=== PATIENT | female | born 1990 | race Asian ===

== ENCOUNTER 2020-07-13 09:18 | Emergency (ER) | payer OTHER ==
[~2020-07-13] VITALS: Ht 154.9 cm; Wt 45.4 kg
--- NOTE | 2020-07-13 09:41 | NUR ---
PT IS A 29F WHO IS 11 WEEKS WITH TWINS, COMPLAINING OF 3 EPISODES OF VOMITING BLOOD SINCE THURSDAY. SHE HAS BEEN VOMITING FROM MORNING SICKNESS IN THE LAST FEW WEEKS. SPOUSE AT BEDSIDE. DENIES URINARY ISSUES. SHE HAD SOME EPIGASTRIC TENDERNESS WELL. CONTINUOUS SP02, AND CYCLING VITALS. CALL LIGHT WITHIN REACH.
[2020-07-13] MEDS ORDERED: PREN1TAB62 PO (09:45)
[2020-07-13] MEDS ORDERED: ONDA4TAB7 PO (09:45)
[2020-07-13 10:04] LABS: MICROSCOPIC INDICATED
[2020-07-13 10:09] LABS: BASOPHILS % (AUTO) 0 % (0-1); EOSINOPHILS % (AUTO) 1 % (1-7); LYMPHOCYTES % (AUTO) 22 % (22-44); MEAN CORPUSCULAR HEMOGLOBIN 30.8 pg (27.0-34.8); MEAN PLATELET VOLUME 7.9 fL (7.4-10.4); MONOCYTES % (AUTO) 7 % (2-9); NEUTROPHILS % (AUTO) 69 % (42-75); PLATELET COUNT 203 x10^3/uL (130-400); RED BLOOD COUNT 4.29 x10^6/uL (3.82-5.3); RED CELL DISTRIBUTION WIDTH 13.5 % (9.6-15.2)
[2020-07-13 10:11] LABS: MD NO
[2020-07-13 10:19] LABS: ALBUMIN 3.4 g/dL (3.4-5.0); ANION GAP 10 mmol/L (5-15); CALCIUM 8.9 mg/dL (8.5-10.1); CHLORIDE 107 mmol/L (98-107)
[2020-07-13 10:22] LABS: ALANINE AMINOTRANSFERASE 24 U/L (12-78); ALKALINE PHOSPHATASE 40 U/L (45-117); BILIRUBIN,TOTAL 0.4 mg/dL (0.2-1.0); CREATININE 0.51 mg/dL (0.55-1.02); TOTAL PROTEIN 7.1 g/dL (6.4-8.2)
[2020-07-13 11:39] VITALS: BP 102/61
--- NOTE | 2020-07-13 11:39 | NUR ---
PT RESTING COMFORTABLY WITH SPOUSE AT BEDSIDE. CALL LIGHT WITHIN REACH. U/S COMPLETED, AWAITING DISPOSITION
== END 2020-07-13 13:11 | disposition home or self-care (01) ==
LOC: ED 12:51
DX: O23.41 Unspecified infection of urinary tract in pregnancy, first trimester (principal); O26.891 Other specified pregnancy related conditions, first trimester; R11.2 Nausea with vomiting, unspecified; R10.9 Unspecified abdominal pain; Z3A.11 11 weeks gestation of pregnancy
CPT/HCPCS: 36415; 76801; 80053; 81001; 83690; 84702; 85025; 87086; 99284

== ENCOUNTER 2020-10-18 11:29 | Inpatient (IN) | payer OTHER ==
[~2020-10-18] VITALS: Ht 154.9 cm; Wt 50.1 kg
[~2020-10-18 11:29] MED LIST: ONDA4TAB7 PO; PREN1TAB62 PO
[2020-10-18] MEDS ORDERED: MAGNESIUM SULF. PMX 20GM/500ML 500 ML IV ONE (11:45)
[2020-10-18] MEDS ORDERED: MAGNESIUM SULFATE PMX 4GM/100M 100 ML ONE (11:45)
[2020-10-18] MEDS ORDERED: MAGNESIUM SULFATE PMX 4GM/100M 100 ML IVPB ONE (12:00)
[2020-10-18] MEDS: BETAMETHASONE 6 MG/ML, 5ML IM SCH (12:29)
[2020-10-18] MEDS: MAGNESIUM SULF. PMX 20GM/500ML 500 ML IV SCH ×2 (12:45→22:37)
[2020-10-18] MEDS ORDERED: INDOMETHACIN 50 MG CAPSULE ONE ×2 (13:34→20:18)
[2020-10-18 13:52] LABS: BASOPHILS % (AUTO) 0 % (0-1); EOSINOPHILS % (AUTO) 1 % (1-7); LYMPHOCYTES % (AUTO) 15 % (22-44); MEAN CORPUSCULAR HEMOGLOBIN 32.3 pg (27.0-34.8); MEAN CORPUSCULAR HGB CONC 34.2 g/dL (32.4-35.8); MEAN PLATELET VOLUME 8.4 fL (7.4-10.4); MONOCYTES % (AUTO) 7 % (2-9); NEUTROPHILS % (AUTO) 77 % (42-75); PLATELET COUNT 172 x10^3/uL (130-400); RED CELL DISTRIBUTION WIDTH 14.5 % (9.6-15.2)
[2020-10-18 13:57] LABS: MD NO
[2020-10-18] MEDS ORDERED: INDOMETHACIN 50 MG CAPSULE PO ONE (14:00)
[2020-10-18] MEDS ORDERED: CALCIUM GLUCONATE 4.6 MEQ/10 ML IV PRN (16:30)
[2020-10-18] MEDS ORDERED: CALCIUM GLUCONATE 4.6 MEQ in SODIUM CHLORIDE 0.9% 100 ML IV PRN (17:00)
[2020-10-18] MEDS: LACTATED RINGERS 1,000 ML IV SCH ×2 (18:32→20:50)
[2020-10-18 19:44] VITALS: BP 102/59
[2020-10-18] MEDS: INDOMETHACIN 25 MG CAPSULE PO SCH (20:46)
[2020-10-19 01:05] VITALS: BP 93/56
[2020-10-19] MEDS: INDOMETHACIN 25 MG CAPSULE PO SCH ×4 (02:02→20:12)
[2020-10-19 04:57] VITALS: BP 94/52
[2020-10-19] MEDS ORDERED: LACTATED RINGERS 1,000 ML IV PRN (05:00)
[2020-10-19] MEDS ORDERED: FOLIC ACID 1 MG TABLET HOMEMEDPO ONE (08:30)
[2020-10-19] MEDS: FERROUS SULFATE 325 MG TABLET HOMEMEDPO SCH (08:30)
[2020-10-19] MEDS: CALCIUM/VITAMIN D3 250-125 TABLET HOMEMEDPO SCH (09:00)
[2020-10-19] MEDS: ASPIRIN 81 MG TABLET EC HOMEMEDPO SCH (09:00)
[2020-10-19] MEDS: SODIUM CHLORIDE FLUSH 10ML SYR IVF SCH ×2 (09:15→21:00)
[2020-10-19] MEDS: BETAMETHASONE 6 MG/ML, 5ML IM SCH (12:35)
[2020-10-20] MEDS: INDOMETHACIN 25 MG CAPSULE PO SCH ×3 (01:56→14:12)
[2020-10-20 07:44] VITALS: BP 109/59
[2020-10-20] MEDS: FERROUS SULFATE 325 MG TABLET HOMEMEDPO SCH (08:00)
[2020-10-20] MEDS: SODIUM CHLORIDE FLUSH 10ML SYR IVF SCH ×2 (09:00→21:00)
[2020-10-20] MEDS: ASPIRIN 81 MG TABLET EC HOMEMEDPO SCH (09:00)
[2020-10-20] MEDS: CALCIUM/VITAMIN D3 250-125 TABLET HOMEMEDPO SCH (09:00)
[2020-10-20] MEDS ORDERED: DOCUSATE 100 MG CAPSULE ONE (18:58)
[2020-10-20] MEDS: DOCUSATE 100 MG CAPSULE PO SCH (22:13)
[2020-10-21] MEDS: FERROUS SULFATE 325 MG TABLET HOMEMEDPO SCH (08:00)
[2020-10-21] MEDS: CALCIUM/VITAMIN D3 250-125 TABLET HOMEMEDPO SCH (09:00)
[2020-10-21] MEDS: ASPIRIN 81 MG TABLET EC HOMEMEDPO SCH (09:00)
[2020-10-21] MEDS: SODIUM CHLORIDE FLUSH 10ML SYR IVF SCH ×2 (09:00→21:00)
[2020-10-21] MEDS ORDERED: POLYETHYLENE GLYCOL 17 GM PACKET PO STA (11:53)
[2020-10-21] MEDS ORDERED: POLYETHYLENE GLYCOL 17 GM PACKET ONE (11:54)
[2020-10-21 20:00] VITALS: BP 100/54
[2020-10-21] MEDS: DOCUSATE 100 MG CAPSULE PO SCH (20:09)
[2020-10-22] MEDS: FERROUS SULFATE 325 MG TABLET HOMEMEDPO SCH (08:04)
[2020-10-22] MEDS: ASPIRIN 81 MG TABLET EC HOMEMEDPO SCH (08:04)
[2020-10-22] MEDS: DOCUSATE 100 MG CAPSULE PO SCH (08:04)
[2020-10-22 08:53] VITALS: BP 100/57
[2020-10-22] MEDS: CALCIUM/VITAMIN D3 250-125 TABLET HOMEMEDPO SCH (09:00)
[2020-10-23] MEDS: CALCIUM/VITAMIN D3 250-125 TABLET HOMEMEDPO SCH (09:00)
[2020-10-23] MEDS: FERROUS SULFATE 325 MG TABLET HOMEMEDPO SCH (09:07)
[2020-10-23] MEDS: ASPIRIN 81 MG TABLET EC HOMEMEDPO SCH (09:07)
[2020-10-23] MEDS: DOCUSATE 100 MG CAPSULE PO SCH ×2 (09:07→21:00)
[2020-10-23] MEDS: SODIUM CHLORIDE FLUSH 10ML SYR IVF SCH (21:00)
== END 2020-10-24 09:05 | disposition home or self-care (01) | DRG 831 ==
LOC: LDIP 11:29
PROVIDERS: ADMIT Student in an Organized Health Care Education/Training Program; ATTEND Student in an Organized Health Care Education/Training Program
DX: O26.872 Cervical shortening, second trimester (principal); O60.02 Preterm labor without delivery, second trimester; O30.042 Twin pregnancy, dichorionic/diamniotic, second trimester; O36.5920 Maternal care for other known or suspected poor fetal growth, second trimester, not applicable or unspecified; Z20.822 Contact with and (suspected) exposure to COVID-19; Z3A.26 26 weeks gestation of pregnancy; Z80.51 Family history of malignant neoplasm of kidney; Z80.6 Family history of leukemia; Z80.8 Family history of malignant neoplasm of other organs or systems; Z82.49 Family history of ischemic heart disease and other diseases of the circulatory system; Z83.3 Family history of diabetes mellitus
CPT/HCPCS: 36415; 83735; 85025; 86850; 86900; 87081; 87635; G0378; J0702; J3475; J7120

== ENCOUNTER 2020-10-30 20:52 | Outpatient (CLI) | payer OTHER ==
[~2020-10-30] VITALS: Ht 154.9 cm; Wt 50.0 kg
[2020-10-30 21:13] VITALS: BP 106/63
[2020-10-30 21:42] LABS: MICROSCOPIC AUTO
== END 2020-10-30 22:10 | disposition home or self-care (01) ==
LOC: LDOP 20:52
PROVIDERS: ATTEND Student in an Organized Health Care Education/Training Program
DX: O26.892 Other specified pregnancy related conditions, second trimester (principal); R10.9 Unspecified abdominal pain; Z3A.27 27 weeks gestation of pregnancy
CPT/HCPCS: 59025; 81001; 87086

== ENCOUNTER 2020-11-20 12:54 | Inpatient (IN) | payer OTHER ==
[~2020-11-20] VITALS: Ht 154.9 cm; Wt 52.1 kg
[2020-11-20] MEDS ORDERED: BETAMETHASONE 6 MG/ML, 5ML IM ONE (15:00)
[2020-11-20] MEDS ORDERED: MAGNESIUM SULFATE PMX 4GM/100M 100 ML ONE (16:20)
[2020-11-20] MEDS ORDERED: MAGNESIUM SULF. PMX 20GM/500ML 500 ML IV ONE (16:21)
[2020-11-20] MEDS ORDERED: MAGNESIUM SULF. PMX 20GM/500ML 500 ML IV SCH (16:30)
[2020-11-20] MEDS ORDERED: MAGNESIUM SULFATE PMX 4GM/100M 100 ML IVPB ONE (16:30)
[2020-11-20 17:43] LABS: BASOPHILS % (AUTO) 0 % (0-1); EOSINOPHILS % (AUTO) 1 % (1-7); LYMPHOCYTES % (AUTO) 11 % (22-44); MEAN CORPUSCULAR HGB CONC 34.5 g/dL (32.4-35.8); MEAN PLATELET VOLUME 7.9 fL (7.4-10.4); MONOCYTES % (AUTO) 3 % (2-9); NEUTROPHILS % (AUTO) 85 % (42-75); PLATELET COUNT 162 x10^3/uL (130-400); RED CELL DISTRIBUTION WIDTH 14.1 % (9.6-15.2)
[2020-11-20] MEDS ORDERED: NEWBORN KIT ONE (19:06)
[2020-11-20] MEDS ORDERED: METOCLOPRAMIDE 5 MG/ML, 2ML ONE (19:07)
[2020-11-20] MEDS ORDERED: SODIUM CITRATE/CITRIC ACID 15 ML UDC ONE (19:07)
[2020-11-21] MEDS ORDERED: SODIUM CHLORIDE FLUSH 10ML SYR IVF SCH (09:00)
[2020-11-21] MEDS ORDERED: BETAMETHASONE 6 MG/ML, 5ML IM ONE (17:00)
[2020-11-22 00:56] VITALS: BP 127/70
== END 2020-11-22 09:10 | disposition home or self-care (01) | DRG 831 ==
LOC: LDOP 12:54 → LDIP 15:59
PROVIDERS: ADMIT Student in an Organized Health Care Education/Training Program; ATTEND Student in an Organized Health Care Education/Training Program
DX: O30.043 Twin pregnancy, dichorionic/diamniotic, third trimester (principal); O60.03 Preterm labor without delivery, third trimester; O32.1XX1 Maternal care for breech presentation, fetus 1; O32.1XX2 Maternal care for breech presentation, fetus 2; Z3A.31 31 weeks gestation of pregnancy; Z80.51 Family history of malignant neoplasm of kidney; Z80.6 Family history of leukemia; Z80.8 Family history of malignant neoplasm of other organs or systems; Z82.49 Family history of ischemic heart disease and other diseases of the circulatory system; Z83.3 Family history of diabetes mellitus
CPT/HCPCS: 36415; 83735; 85025; 86850; 86900; G0378; J0702; J3475

== ENCOUNTER 2020-11-28 01:59 | Outpatient (CLI) | payer OTHER ==
[2020-11-28 02:36] VITALS: BP 122/81
== END 2020-11-28 03:23 | disposition home or self-care (01) ==
LOC: LDOP 01:59
PROVIDERS: ATTEND Student in an Organized Health Care Education/Training Program
DX: O46.93 Antepartum hemorrhage, unspecified, third trimester (principal); O26.893 Other specified pregnancy related conditions, third trimester; R10.9 Unspecified abdominal pain; Z3A.32 32 weeks gestation of pregnancy
CPT/HCPCS: 59025

== ENCOUNTER 2020-11-28 19:33 | Inpatient (IN) | payer OTHER ==
[~2020-11-28] VITALS: Ht 154.9 cm; Wt 52.2 kg
[2020-11-28] MEDS ORDERED: MAGNESIUM SULFATE PMX 4GM/100M 100 ML ONE (19:42)
[2020-11-28] MEDS ORDERED: MAGNESIUM SULF. PMX 20GM/500ML 0 ML IV ONE (19:42)
[2020-11-28] MEDS ORDERED: SODIUM CITRATE/CITRIC ACID 15 ML UDC ONE (19:51)
[2020-11-28] MEDS ORDERED: METOCLOPRAMIDE 5 MG/ML, 2ML ONE (19:51)
[2020-11-28] MEDS ORDERED: NEWBORN KIT ONE (19:58)
[2020-11-28] MEDS ORDERED: KETOROLAC 30 MG/1 ML ONE (19:59)
[2020-11-28] MEDS ORDERED: PHENYLEPHRINE 10 MG/ML ONE (19:59)
[2020-11-28] MEDS ORDERED: CEFAZOLIN 1,000 MG ONE (19:59)
[2020-11-28] MEDS ORDERED: OXYTOCIN 10 UNITS/ML, 1ML ONE (19:59)
[2020-11-28] MEDS ORDERED: EPHEDRINE 50 MG/ML, 1ML ONE (19:59)
[2020-11-28] MEDS ORDERED: DEXAMETHASONE 4 MG/ML, 1ML ONE (19:59)
[2020-11-28] MEDS ORDERED: ONDANSETRON 2MG/ML, 2ML ONE (19:59)
[2020-11-28] MEDS ORDERED: LABETALOL 5MG/ML, 20ML IV PRN (20:00)
[2020-11-28] MEDS ORDERED: HYDROcodone/APAP 7.5-325MG/15ML UDC PO PRN (20:00)
[2020-11-28] MEDS ORDERED: ALBUTEROL SULFATE 2.5 MG/3 ML NPPB PRN (20:00)
[2020-11-28] MEDS ORDERED: ONDANSETRON 2MG/ML, 2ML IVPush PRN (20:00)
[2020-11-28] MEDS ORDERED: MAGNESIUM SULFATE PMX 4GM/100M 100 ML IVPB ONE (20:00)
[2020-11-28] MEDS ORDERED: HYDROmorphone 2 MG/ML, 1ML IVPush PRN (20:00)
[2020-11-28] MEDS ORDERED: hydrALAzine 20 MG/ML, 1ML IV PRN (20:00)
[2020-11-28] MEDS ORDERED: MEPERIDINE/PF 25MG/0.5ML IVPush PRN (20:00)
[2020-11-28] MEDS ORDERED: OXYcodone 5 MG/5 ML ORAL.SOL UDC PO PRN (20:00)
[2020-11-28] MEDS ORDERED: METOPROLOL 1 MG/ML, 5ML IV PRN (20:00)
[2020-11-28] MEDS ORDERED: PROMETHAZINE 25 MG/ML, 1ML IV PRN (20:00)
[2020-11-28] MEDS ORDERED: EPHEDRINE 50 MG/ML, 1ML IVPush PRN (20:00)
[2020-11-28] MEDS ORDERED: METOCLOPRAMIDE 5 MG/ML, 2ML IV ONE (20:00)
[2020-11-28] MEDS ORDERED: FENTANYL PF 100 MCG/2ML IV PRN (20:00)
[2020-11-28] MEDS: MAGNESIUM SULF. PMX 20GM/500ML 500 ML IV SCH (20:00)
[2020-11-28] MEDS ORDERED: LACTATED RINGERS 1,000 ML IVBOLUS ONE (20:00)
[2020-11-28] MEDS ORDERED: MIDAZOLAM 1 MG/ML, 2ML IV PRN (20:00)
[2020-11-28] MEDS ORDERED: SODIUM CITRATE/CITRIC ACID 30 ML UDC PO ONE (20:00)
[2020-11-28 20:14] LABS: BASOPHILS % (AUTO) 1 % (0-1); EOSINOPHILS % (AUTO) 0 % (1-7); LYMPHOCYTES % (AUTO) 10 % (22-44); MEAN CORPUSCULAR HGB CONC 34.5 g/dL (32.4-35.8); MEAN PLATELET VOLUME 8.1 fL (7.4-10.4); MONOCYTES % (AUTO) 5 % (2-9); NEUTROPHILS % (AUTO) 84 % (42-75); PLATELET COUNT 135 x10^3/uL (130-400); RED BLOOD COUNT 3.86 x10^6/uL (3.82-5.3); RED CELL DISTRIBUTION WIDTH 14.4 % (9.6-15.2)
[2020-11-28] MEDS ORDERED: OXYTOCIN 30U/ 0.9% NaCL 500ML 500 ML ONE (20:36)
[2020-11-28] MEDS ORDERED: FENTANYL PF 100 MCG/2ML ONE (21:03)
[2020-11-28] MEDS ORDERED: HYDROmorphone 2 MG/ML, 1ML ONE (21:03)
[2020-11-29 00:25] VITALS: BP 106/65
[2020-11-29] MEDS ORDERED: OXYcodone IR 5MG TABLET PO PRN (00:30)
[2020-11-29] MEDS ORDERED: ONDANSETRON 2MG/ML, 2ML IV PRN (00:30)
[2020-11-29] MEDS ORDERED: ACETAMINOPHEN 325 MG TABLET PO PRN (00:30)
[2020-11-29] MEDS ORDERED: OXYTOCIN 30U/ 0.9% NaCL 500ML 500 ML IV SCH (00:30)
[2020-11-29] MEDS ORDERED: LACTATED RINGERS 1,000 ML IV SCH ×2 (00:30)
[2020-11-29] MEDS: OXYcodone IR 5MG TABLET PO PRN ×4 (00:37→19:20)
[2020-11-29] MEDS: KETOROLAC 30 MG/1 ML IV SCH ×4 (03:04→22:03)
[2020-11-29 04:45] VITALS: BP 109/64
[2020-11-29] MEDS: MAGNESIUM SULF. PMX 20GM/500ML 500 ML IV SCH (06:00)
[2020-11-29 06:01] LABS: BASOPHILS % (AUTO) 0 % (0-1); EOSINOPHILS % (AUTO) 0 % (1-7); LYMPHOCYTES % (AUTO) 9 % (22-44); MEAN CORPUSCULAR HGB CONC 34.3 g/dL (32.4-35.8); MEAN PLATELET VOLUME 8.6 fL (7.4-10.4); MONOCYTES % (AUTO) 6 % (2-9); NEUTROPHILS % (AUTO) 85 % (42-75); PLATELET COUNT 133 x10^3/uL (130-400); RED BLOOD COUNT 3.82 x10^6/uL (3.82-5.3); RED CELL DISTRIBUTION WIDTH 14.1 % (9.6-15.2)
[2020-11-29 07:15] VITALS: BP 105/64
[2020-11-29] MEDS: PRENATAL VIT/IRON/FA 1 EACH TABLET PO SCH (09:03)
[2020-11-29] MEDS: DOCUSATE 100 MG CAPSULE PO PRN (09:03)
[2020-11-29] MEDS: SIMETHICONE 80 MG CHEW TAB PO PRN ×2 (13:46→19:20)
[2020-11-29 14:19] VITALS: BP 104/67
[2020-11-29 16:30] VITALS: BP 111/55
[2020-11-29 19:30] VITALS: BP 100/66
[2020-11-30] MEDS: OXYcodone IR 5MG TABLET PO PRN (02:06)
[2020-11-30] MEDS: KETOROLAC 30 MG/1 ML IV SCH ×4 (03:55→22:00)
[2020-11-30 08:11] VITALS: BP 105/64
[2020-11-30] MEDS: DOCUSATE 100 MG CAPSULE PO PRN ×2 (09:57→23:12)
[2020-11-30] MEDS: PRENATAL VIT/IRON/FA 1 EACH TABLET PO SCH (09:57)
[2020-11-30 18:31] VITALS: BP 113/67
[2020-11-30] MEDS: IBUPROFEN 600 MG TABLET PO PRN (23:12)
[2020-12-01] MEDS: IBUPROFEN 600 MG TABLET PO PRN ×3 (05:39→20:10)
[2020-12-01 09:35] VITALS: BP 110/64
[2020-12-01] MEDS: PRENATAL VIT/IRON/FA 1 EACH TABLET PO SCH (11:52)
[2020-12-01 20:00] VITALS: BP 107/69
[2020-12-02] MEDS: IBUPROFEN 600 MG TABLET PO PRN ×2 (02:16→08:33)
[2020-12-02 07:35] VITALS: BP 116/62
[2020-12-02] MEDS: PRENATAL VIT/IRON/FA 1 EACH TABLET PO SCH (09:27)
== END 2020-12-02 12:23 | disposition home or self-care (01) | DRG 786 ==
LOC: LDOP 19:33 → LDIP 19:42 → 2NW 11-29
PROVIDERS: ADMIT Student in an Organized Health Care Education/Training Program; ATTEND Student in an Organized Health Care Education/Training Program
PROC: 10D00Z1 Extraction of Products of Conception, Low, Open Approach (ICD-10-PCS; principal; 2020-11-28)
DX: O30.043 Twin pregnancy, dichorionic/diamniotic, third trimester (principal); O60.14X2 Preterm labor third trimester with preterm delivery third trimester, fetus 2; O60.14X1 Preterm labor third trimester with preterm delivery third trimester, fetus 1; O32.1XX1 Maternal care for breech presentation, fetus 1; O32.1XX2 Maternal care for breech presentation, fetus 2; O36.5931 Maternal care for other known or suspected poor fetal growth, third trimester, fetus 1; O36.5932 Maternal care for other known or suspected poor fetal growth, third trimester, fetus 2; E55.9 Vitamin D deficiency, unspecified; O99.284 Endocrine, nutritional and metabolic diseases complicating childbirth; Z3A.31 31 weeks gestation of pregnancy; Z37.2 Twins, both liveborn; Z80.51 Family history of malignant neoplasm of kidney; Z80.6 Family history of leukemia; Z80.8 Family history of malignant neoplasm of other organs or systems; Z82.49 Family history of ischemic heart disease and other diseases of the circulatory system; Z83.3 Family history of diabetes mellitus; Z20.822 Contact with and (suspected) exposure to COVID-19
CPT/HCPCS: 36415; 85025; 86592; 86850; 86900; 87635; G0378; J0690; J1100; J1170; J1885; J2405; J3010; J2370; J2590; J2765; J3475; J7120